=== PATIENT | female | born 1965 | race Caucasian/White ===

== ENCOUNTER → 2017-09-10 | Outpatient (CLI) | payer OTHER ==
[~2017-09-10] MED LIST: ALPR.25 PO; ATEN25 PO; BAYER CHEWABLE81 MG PO; Cipro500 MG PO; Diflucan150 MG PO; LISI20 PO; POTCHL10ER
[2017-09-10 09:24] LABS: BASOPHILS ABSOLUTE AUTO 0.06 K/mm3 (0.00-0.23); BASOPHILS PERCENT AUTO 1 % (0-2); EOSINOPHILS ABSOLUTE AUTO 0.15 K/mm3 (0.00-0.68); EOSINOPHILS PERCENT AUTO 2 % (0-6); Hematocrit 42.2 % (33.0-51.0); Hemoglobin 14.7 g/dL (11.5-16.0); IMMATURE GRAN ABSOLUTE AUTO 0.01 K/mm3 (0.00-0.10); IMMATURE GRAN PERCENT AUTO 0 % (0-1); LYMPHOCYTES ABSOLUTE AUTO 2.05 K/mm3 (0.84-5.20); LYMPHOCYTES PERCENT AUTO 28 % (21-46); MONOCYTES ABSOLUTE AUTO 0.86 K/mm3 (0.16-1.47); MONOCYTES PERCENT AUTO 12 % (4-13); Mean Corpuscular HGB 30.8 pg (26.0-34.0); Mean Corpuscular HGB Conc 34.8 g/dL (31.5-36.5); Mean Corpuscular Volume 88 fL (80-100); Mean Platelet Volume 9.7 fL (9.1-12.4); NEUTROPHILS ABSOLUTE AUTO 4.08 K/mm3 (1.96-9.15); NEUTROPHILS PERCENT AUTO 57 % (41-73); Platelet Count 259 K/mm3 (150-400); RDW Coefficient Variation 13.2 % (11.7-14.2); RDW Standard Deviation 42.5 fL (35.1-46.3); Red Blood Cell Count 4.78 M/mm3 (3.80-5.20); White Blood Cell Count 7.21 K/mm3 (4.00-11.30)
[2017-09-10 09:41] LABS: Alanine Aminotransfer (ALT/SGP 23 U/L (12-78); Albumin, Blood 3.7 g/dL (3.4-5.0); Albumin/Globulin Ratio 0.9 (0.8-1.8); Alk Phos 62 U/L (40-126); Anion Gap 8 mmol/L (6-16); Aspartate Aminotrans (AST/SGOT 21 U/L (12-37); Bilirubin, Total 0.3 mg/dL (0.1-1.0); Blood Urea Nitrogen 17 mg/dL (8-24); Bun/Creatinine Ratio 19.1 (12.0-20.0); CO2, Blood 29 mmol/L (21-32); Calcium, Blood 9.4 mg/dL (8.5-10.1); Chloride, Blood 104 mmol/L (98-108); Creatinine, Blood 0.89 mg/dL (0.40-1.00); Glomerular Filtration Rate >60 (60-); Glucose, Blood 96 mg/dL (70-99); Potassium, Blood 3.2 mmol/L (3.5-5.5); Sodium, Blood 141 mmol/L (136-145); Total Protein, Blood 7.7 g/dL (6.4-8.2)
== END | disposition home or self-care (01) ==
LOC: LAB SHORT 09:21 → LAB EV 09:21
PROVIDERS: Physician Assistant Medical
DX: R10.30 Lower abdominal pain, unspecified (principal)
CPT/HCPCS: 80053; 85025

== ENCOUNTER → 2017-09-21 | Outpatient (CLI) | payer OTHER ==
[~2017-09-21] MED LIST changes: +ALBU90OI INH; +ASPI81CH PO; +Adipex-P37.5 MG PO; +BUSP10 PO; +FURO20 PO; +HYDCHL25 PO; +NICO21TP TD; +PRAZ2 PO; +SERT100 PO; +Ventolin5 MG/1 ML INH
== END | disposition home or self-care (01) ==
LOC: LAB EV 10:27
DX: N39.0 Urinary tract infection, site not specified (principal)
CPT/HCPCS: 87077; 87086; 87186

== ENCOUNTER → 2017-12-19 | Outpatient (CLI) | payer OTHER ==
[~2017-12-19] MED LIST changes: -ASPI81CH PO; -Adipex-P37.5 MG PO; -FURO20 PO; -Ventolin5 MG/1 ML INH
== END | disposition home or self-care (01) ==
LOC: LAB 16:06 → LAB SHORT 16:06
DX: N39.0 Urinary tract infection, site not specified (principal)
CPT/HCPCS: 87077; 87086; 87186

== ENCOUNTER → 2017-12-27 | Outpatient (CLI) | payer OTHER | END | disposition home or self-care (01) | LOC: LAB UCHC 08:49 → LAB SHORT 08:49 | DX: R10.2 Pelvic and perineal pain (principal) | CPT/HCPCS: 87086 ==

== ENCOUNTER → 2018-07-24 | Outpatient (CLI) | payer OTHER ==
[~2018-07-24] MED LIST changes: +ACET500 PO; +ASPI325EC PO; +Adipex-P37.5 MG PO; +FURO20 PO; +OXYC5 PO; +Ventolin5 MG/1 ML INH
== END | disposition home or self-care (01) ==
LOC: LAB SHORT 14:08 → LAB EV 14:08
DX: R30.0 Dysuria (principal)
CPT/HCPCS: 87086

== ENCOUNTER 2018-08-12 05:55 | Day surgery (SDC) | payer OTHER ==
[~2018-08-12] VITALS: Ht 170.2 cm; Wt 104.8 kg
[~2018-08-12 05:55] MED LIST changes: -ACET500 PO; -OXYC5 PO
--- NOTE | 2018-08-12 06:58 | NUR ---
History, Chart, Medications and Allergies reviewed before start of procedure. Patient confirms NPO status and agrees with scheduled surgery. Lungs clear T/O to Auscultation. Patient reports completing Chlorhexadine shower X5 prior to admission to hospital, MUPIROCIN X5 DAYS IN BILATERAL NARES, NO ISOLATION NEEDED. Pre-Op teaching done. Pt verbalizes understanding.
--- NOTE | 2018-08-12 07:31 | NUR ---
2 MG IV VERSED ADMINISTERED.
--- NOTE | 2018-08-12 07:35 | NUR ---
LICENSED PSYCHIATRIC TECHNICIAN REPORT COMPLETED AT BEDSIDE.
--- NOTE | 2018-08-12 07:36 | NUR ---
PATIENT VOID PRIOR TO OR, 30 MIN.
--- NOTE | 2018-08-12 07:47 | NUR ---
DISCUSSED PCN ALLERGY WITH DR MIMS PRESURGICALLY, NO NEW ORDERS RECEIVED, OK TO PROCEED WITH ANCEF 2 GM IV.
--- NOTE | 2018-08-12 12:51 | NUR ---
PT APPEARS TO BE SLEEPING, NADN. FAMILY AT BEDSIDE.
--- NOTE | 2018-08-12 18:27 | NUR ---
SHIFT SUMMARY PT CONTINUES TO BE NAUSEATED AND DRY HEAVES AT TIMES BUT AM HESITANT TO GIVE PHENERGAN DUE TO PATIENT BEING VERY DROWSY. PT UNABLE TO WORK WITH THERAPY DUE TO DROWSINESS AND NAUSEA. PAIN WELL CONTROLLED.
[2018-08-13 05:30] LABS: BASOPHILS ABSOLUTE AUTO 0.02 K/mm3 (0.00-0.23); BASOPHILS PERCENT AUTO 0 % (0-2); EOSINOPHILS PERCENT AUTO 0 % (0-6); Hematocrit 36.6 % (33.0-51.0); Hemoglobin 11.6 g/dL (11.5-16.0); IMMATURE GRAN ABSOLUTE AUTO 0.14 K/mm3 (0.00-0.10); IMMATURE GRAN PERCENT AUTO 1 % (0-1); LYMPHOCYTES ABSOLUTE AUTO 1.93 K/mm3 (0.84-5.20); LYMPHOCYTES PERCENT AUTO 9 % (21-46); MONOCYTES PERCENT AUTO 5 % (4-13); Mean Corpuscular HGB 28.8 pg (26.0-34.0); Mean Corpuscular HGB Conc 31.7 g/dL (31.5-36.5); Mean Corpuscular Volume 91 fL (80-100); Mean Platelet Volume 9.9 fL (9.1-12.4); NEUTROPHILS ABSOLUTE AUTO 17.98 K/mm3 (1.96-9.15); NEUTROPHILS PERCENT AUTO 85 % (41-73); Platelet Count 265 K/mm3 (150-400); RDW Coefficient Variation 13.6 % (11.7-14.2); RDW Standard Deviation 45.1 fL (35.1-46.3); Red Blood Cell Count 4.03 M/mm3 (3.80-5.20); White Blood Cell Count 21.07 K/mm3 (4.00-11.30)
[2018-08-13 06:20] LABS: Anion Gap 8 mmol/L (6-16); Blood Urea Nitrogen 16 mg/dL (8-24); CO2, Blood 26 mmol/L (21-32); Calcium, Blood 8.6 mg/dL (8.5-10.1); Chloride, Blood 107 mmol/L (98-108); Creatinine, Blood 0.89 mg/dL (0.40-1.00); Glomerular Filtration Rate >60 (60-); Glucose, Blood 119 mg/dL (70-99); Magnesium, Blood 1.9 mg/dL (1.6-2.4); Potassium, Blood 4.1 mmol/L (3.5-5.5); Sodium, Blood 141 mmol/L (136-145)
--- NOTE | 2018-08-13 08:08 | NUR ---
SUMMARY PT REPORTS NAUSEA RESOLVED. UP TO CHAIR AT BEDSIDE THIS AM. VERB PAIN MEDS EFFECTIVE. VOIDING WITHOUT DIFF. INC WITH DSNG D/I.ICE CONTINUED. PAS ON. ENC IS CDB W/A.
[2018-08-13] MEDS ORDERED: OXYC5 PO (12:13)
[2018-08-13] MEDS ORDERED: ACET500 PO (12:23)
--- NOTE | 2018-08-13 14:25 | NUR ---
DISCHARGED TO HOME WITH . D/C RX GIVEN. D/C INSTRUCTIONS PROVIDED. PT STATES UNDERSTANDING. PT ENCOURAGED TO F/U [facility] IF PROBLEMS OCCUR. [facility] CONNOR'S SENT WITH PT. VSS.
== END 2018-08-13 14:50 | disposition home or self-care (01) ==
LOC: ORSCMMR 05:55 → ORD 07:30 → ORSCMMR 07:30 → SURS 10:53 → ORSCMMR 08-13 14:50
PROVIDERS: Orthopaedic Surgery
PROC: 0SRC0J9 Replacement of Right Knee Joint with Synthetic Substitute, Cemented, Open Approach (ICD-10-PCS; principal; 2018-08-12 07:30)
DX: M17.11 Unilateral primary osteoarthritis, right knee (principal); I10 Essential (primary) hypertension; J45.909 Unspecified asthma, uncomplicated; Z86.73 Personal history of transient ischemic attack (TIA), and cerebral infarction without residual deficits; Z79.899 Other long term (current) drug therapy
CPT/HCPCS: 36415; 73560-RT; 80048; 83735; 85025; 88300; 97110; 97116; 97162; 97530; C1713; C1776; J0171; J0690; J0735; J1100; J1170; J1885; J2250; J2405; J2795; J3010; J7120

== ENCOUNTER → 2019-01-27 | Outpatient (CLI) | payer OTHER ==
[~2019-01-27] MED LIST changes: +ACET500 PO; +OXYC5 PO
== END ==
LOC: LAB SHORT 09:40 → LAB 09:40
DX: N89.8 Other specified noninflammatory disorders of vagina (principal); B37.2 Candidiasis of skin and nail; Z90.710 Acquired absence of both cervix and uterus
CPT/HCPCS: 87070; 87077; 87186; 87205

== ENCOUNTER 2019-09-04 11:02 | Day surgery (SDC) | payer OTHER ==
[~2019-09-04] VITALS: Ht 167.6 cm; Wt 117.0 kg
--- NOTE | 2019-09-04 11:39 | NUR ---
Patient up to Ambulate independently. Gait steady. Patient states colon prep results clear. History, Chart, Medications and Allergies reviewed before start of procedure.Lungs clear T/O to Auscultation. Patient confirms NPO status and agrees with scheduled surgery.
--- NOTE | 2019-09-04 12:29 | NUR ---
09/04/19 1229 Stiven Avery History, Chart, Medications and Allergies reviewed before start of procedure.MONITOR INTACT WITH CONTINUOUS PULSE OXIMETRY AND INTERMITTENT BP.3-LEAD EKG REVIEWED WITH PHYSICIAN PRIOR TO START OF PROCEDURE.O2 VIA N/C INTACT THROUGHOUT SEDATION/PROCEDURE. See Anesthesia record.
--- NOTE | 2019-09-04 13:06 | NUR ---
DR NAVARRO CONSULTED ANESTHESIA FOR COLONSCOPY. DR DIETZ REVIEW CHART AND DUE TO BMI >40 AND NOT HAVING ANY OTHER MEDICAL ISSUES, OK TO PROCEED WITH NURSE SEDATION. DR DIETZ SPOKE WITH DR NAVARRO AND OK TO PROCEED.
--- NOTE | 2019-09-04 13:32 | NUR ---
Discharge instructions reviewed with patient. Patient verbalizes understanding. Copy given to patient to take home. Discharged via wheelchair to private car for ride home.
== END 2019-09-04 23:05 | disposition home or self-care (01) ==
LOC: ORSCMMR 11:02 → ORD 12:30 → ORSCMMR 12:30
PROVIDERS: Internal Medicine Gastroenterology
PROC: 0DBH8ZX Excision of Cecum, Via Natural or Artificial Opening Endoscopic, Diagnostic (ICD-10-PCS; principal; 2019-09-04 12:30)
PROC: 0DBP8ZX Excision of Rectum, Via Natural or Artificial Opening Endoscopic, Diagnostic (ICD-10-PCS; principal; 2019-09-04 12:30)
DX: Z12.11 Encounter for screening for malignant neoplasm of colon (principal); Z80.0 Family history of malignant neoplasm of digestive organs; D12.0 Benign neoplasm of cecum; K62.1 Rectal polyp; K64.8 Other hemorrhoids; K62.89 Other specified diseases of anus and rectum; I10 Essential (primary) hypertension; J45.909 Unspecified asthma, uncomplicated; K57.30 Diverticulosis of large intestine without perforation or abscess without bleeding; F41.9 Anxiety disorder, unspecified; F43.10 Post-traumatic stress disorder, unspecified; Z87.891 Personal history of nicotine dependence; E66.01 Morbid (severe) obesity due to excess calories; Z68.41 Body mass index [BMI] 40.0-44.9, adult; Z79.82 Long term (current) use of aspirin; Z79.899 Other long term (current) drug therapy
CPT/HCPCS: 88305; J2704; J7120